=== PATIENT | female | born 2000 | race Caucasian/White ===

== ENCOUNTER 2021-06-23 14:30 | Inpatient (IN) | payer OTHER ==
[~2021-06-23] VITALS: Ht 154.9 cm; Wt 90.8 kg
[2021-06-23] MEDS ORDERED: LEXA1TAB2 PO (14:57)
[2021-06-23] MEDS ORDERED: OLANZapine ORAL DISINTEGRATING TAB 5MG PO ONE (15:15)
[2021-06-23 16:35] LABS: HEMATOCRIT 45.3 % (36.0-47.0); HEMOGLOBIN 15.3 g/dl (12.0-15.5); MEAN CORPUSCULAR HGB CONC 33.8 g/dl (32.0-36.5); MEAN CORPUSCULAR VOLUME 88.8 fl (80.0-96.0); PLATELET COUNT, AUTOMATED 360 10^3/uL (150-450); WHITE BLOOD COUNT 9.9 10^3/uL (4.0-10.0)
[2021-06-23] MEDS ORDERED: NORT1TAB3 PO (16:39)
[2021-06-23] MEDS ORDERED: RA M10TA PO (16:40)
[2021-06-23] MEDS ORDERED: HOME MED LIST COMPLETE! XX SCH (16:40)
[2021-06-23 16:48] LABS: RSV AMPLIFICATION NEGATIVE (NEGATIVE)
[2021-06-23 17:15] LABS: ACETAMINOPHEN LEVEL < 2.0 UG/ML (10.0-30.0); ALBUMIN 3.6 GM/DL (3.2-5.2); ALT/SGPT 57 U/L (12-78); BILIRUBIN,DIRECT < 0.1 MG/DL (0.0-0.2); BILIRUBIN,TOTAL 0.3 MG/DL (0.2-1.0); BLOOD UREA NITROGEN 7 MG/DL (7-18); CALCIUM LEVEL 9.2 MG/DL (8.5-10.1); CARBON DIOXIDE LEVEL 24 MEQ/L (21-32); CHLORIDE LEVEL 111 MEQ/L (98-107); CREATININE FOR GFR 0.58 MG/DL (0.55-1.30); ETHYL ALCOHOL (ETHANOL) < 0.003 % (0.000-0.010); GLUCOSE, FASTING 89 MG/DL (70-100); POTASSIUM SERUM 4.5 MEQ/L (3.5-5.1); SALICYLATE LEVEL < 1.7 MG/DL (5.0-30.0); SODIUM LEVEL 142 MEQ/L (136-145); TOTAL PROTEIN 7.7 GM/DL (6.4-8.2)
[2021-06-23 17:19] LABS: HCG, SERUM QUALITATIVE NEGATIVE (NEGATIVE)
[2021-06-23 17:34] LABS: AMPHETAMINES LEVEL URINE NEGATIVE (NEGATIVE); BARBITURATES URINE NEGATIVE (NEGATIVE); BENZODIAZEPINES URINE NEGATIVE (NEGATIVE); CANNABINOIDS URINE NEGATIVE (NEGATIVE); COCAINE METABOLITE URINE NEGATIVE (NEGATIVE); METHADONE URINE NEGATIVE (NEGATIVE); OPIATES URINE NEGATIVE (NEGATIVE); PHENCYCLIDINE URINE NEGATIVE (NEGATIVE)
[2021-06-23] MEDS ORDERED: ACETAMINOPHEN TAB 650MG DOSE (2X325MG) PO PRN (19:20)
[2021-06-23] MEDS ORDERED: MAALOX 30 ML SUSP *UDC PO PRN (19:20)
[2021-06-23] MEDS ORDERED: MOM 30ML SUSPENSION UDC PO PRN (19:20)
[2021-06-23 23:17] VITALS: BP 142/90
[2021-06-24 07:04] VITALS: BP 128/60
[2021-06-24 18:54] VITALS: BP 171/97
[2021-06-24] MEDS ORDERED: OLANZapine 5 MG TAB PO SCH (21:00)
[2021-06-24] MEDS: PRAZOSIN 1 MG CAP PO SCH (21:49)
[2021-06-24 22:30] VITALS: BP 150/88
[2021-06-25 07:25] VITALS: BP 142/80
[2021-06-25 07:42] LABS: CHOLESTEROL RISK RATIO 3.861 (<5)
[2021-06-25] MEDS: OLANZapine ORAL DISINTEGRATING TAB 5MG PO PRN (13:31)
[2021-06-25] MEDS ORDERED: BENZTROPINE 1 MG TAB PO ONE (16:45)
[2021-06-25] MEDS ORDERED: LORazepam 1 MG TAB PO ONE (16:45)
[2021-06-25 17:19] VITALS: BP 150/94
[2021-06-25] MEDS ORDERED: OLANZapine 5 MG TAB PO SCH (21:00)
[2021-06-25] MEDS: PRAZOSIN 1 MG CAP PO SCH (21:59)
[2021-06-26] MEDS ORDERED: BENZTROPINE 1 MG TAB PO SCH (09:00)
[2021-06-26] MEDS: OLANZapine 5 MG TAB PO SCH ×2 (09:21→20:48)
[2021-06-26] MEDS ORDERED: BENZTROPINE 1 MG TAB PO ONE (11:30)
[2021-06-26] MEDS ORDERED: LORazepam 2 MG TAB PO ONE (11:30)
[2021-06-26] MEDS ORDERED: BENZTROPINE 1 MG TAB PO PRN (11:45)
[2021-06-26] MEDS: PRAZOSIN 1 MG CAP PO SCH (20:51)
[2021-06-26] MEDS: OLANZapine ORAL DISINTEGRATING TAB 5MG PO PRN (23:36)
[2021-06-26] MEDS: traZODone 50 MG TAB PO PRN (23:36)
[2021-06-27 06:52] VITALS: BP 160/78
[2021-06-27] MEDS: OLANZapine 5 MG TAB PO SCH (08:43)
[2021-06-27 14:25] VITALS: BP 172/80
[2021-06-27] MEDS: OLANZapine ORAL DISINTEGRATING TAB 5MG PO PRN ×2 (15:07→20:07)
[2021-06-27] MEDS ORDERED: METOPROLOL TART 25 MG TABLET PO ONE (15:25)
[2021-06-27] MEDS: hydroCHLOROthiazide 12.5 MG CAPSULE PO SCH (16:55)
[2021-06-27] MEDS: amLODIPine 5 MG TAB PO SCH (16:55)
[2021-06-27 17:28] VITALS: BP 146/82
[2021-06-27] MEDS: PRAZOSIN 1 MG CAP PO SCH (21:47)
[2021-06-27] MEDS: traZODone 50 MG TAB PO PRN (21:47)
[2021-06-27] MEDS: OLANZapine 10 MG TAB PO SCH (21:47)
[2021-06-28 06:50] VITALS: BP 125/70
[2021-06-28] MEDS: hydroCHLOROthiazide 12.5 MG CAPSULE PO SCH (09:55)
[2021-06-28] MEDS: OLANZapine 5 MG TAB PO SCH (09:55)
[2021-06-28] MEDS: amLODIPine 5 MG TAB PO SCH (10:11)
[2021-06-28 17:50] VITALS: BP 128/82
[2021-06-28] MEDS: OLANZapine ORAL DISINTEGRATING TAB 5MG PO PRN (21:41)
[2021-06-28] MEDS: OLANZapine 10 MG TAB PO SCH (21:42)
[2021-06-28] MEDS: DIVALPROEX 250 MG TAB PO SCH (21:42)
[2021-06-28 21:51] VITALS: BP 166/90
[2021-06-28] MEDS: PRAZOSIN 1 MG CAP PO SCH (21:51)
[2021-06-28] MEDS: traZODone 50 MG TAB PO PRN (22:25)
[2021-06-29] MEDS: DIVALPROEX 250 MG TAB PO SCH ×2 (08:09→20:02)
[2021-06-29] MEDS: OLANZapine 5 MG TAB PO SCH (08:16)
[2021-06-29] MEDS: amLODIPine 5 MG TAB PO SCH (08:16)
[2021-06-29] MEDS: hydroCHLOROthiazide 12.5 MG CAPSULE PO SCH (08:17)
[2021-06-29 16:08] VITALS: BP 148/69
[2021-06-29] MEDS: OLANZapine 10 MG TAB PO SCH (20:01)
[2021-06-29] MEDS: PRAZOSIN 1 MG CAP PO SCH (20:01)
[2021-06-29] MEDS: traZODone 50 MG TAB PO PRN (20:48)
[2021-06-30 06:16] VITALS: BP 130/72
[2021-06-30] MEDS: DIVALPROEX 250 MG TAB PO SCH ×2 (08:53→21:03)
[2021-06-30] MEDS: hydroCHLOROthiazide 12.5 MG CAPSULE PO SCH (08:53)
[2021-06-30] MEDS: amLODIPine 5 MG TAB PO SCH (08:53)
[2021-06-30] MEDS: OLANZapine 10 MG TAB PO SCH ×2 (08:53→21:02)
[2021-06-30 16:20] VITALS: BP 135/78
[2021-06-30] MEDS: traZODone 50 MG TAB PO PRN (21:02)
[2021-06-30] MEDS: PRAZOSIN 1 MG CAP PO SCH (21:05)
[2021-07-01 06:37] VITALS: BP 144/98
[2021-07-01] MEDS: amLODIPine 5 MG TAB PO SCH (08:17)
[2021-07-01] MEDS: DIVALPROEX 250 MG TAB PO SCH ×2 (08:17→20:49)
[2021-07-01] MEDS: hydroCHLOROthiazide 12.5 MG CAPSULE PO SCH (08:17)
[2021-07-01] MEDS: OLANZapine 10 MG TAB PO SCH ×2 (08:18→20:49)
[2021-07-01 16:17] VITALS: BP 132/75
[2021-07-01] MEDS: traZODone 50 MG TAB PO PRN (20:49)
[2021-07-01] MEDS: PRAZOSIN 1 MG CAP PO SCH (20:49)
[2021-07-02] MEDS: OLANZapine ORAL DISINTEGRATING TAB 5MG PO PRN (00:07)
[2021-07-02 06:30] VITALS: BP 135/82
[2021-07-02] MEDS: hydroCHLOROthiazide 12.5 MG CAPSULE PO SCH (09:58)
[2021-07-02] MEDS: amLODIPine 5 MG TAB PO SCH (09:58)
[2021-07-02] MEDS: OLANZapine 10 MG TAB PO SCH ×2 (09:58→21:25)
[2021-07-02] MEDS: DIVALPROEX 250 MG TAB PO SCH ×2 (09:58→21:23)
[2021-07-02] MEDS: hydrOXYzine 50 MG TAB PO PRN (21:22)
[2021-07-02] MEDS: traZODone 50 MG TAB PO PRN (21:23)
[2021-07-02] MEDS: PRAZOSIN 1 MG CAP PO SCH (21:25)
[2021-07-03] MEDS: OLANZapine ORAL DISINTEGRATING TAB 5MG PO PRN (01:43)
[2021-07-03] MEDS: hydrOXYzine 50 MG TAB PO PRN (05:49)
[2021-07-03 06:42] VITALS: BP 132/70
[2021-07-03] MEDS ORDERED: hydrOXYzine 50 MG TAB PO PRN (08:30)
[2021-07-03] MEDS: hydroCHLOROthiazide 12.5 MG CAPSULE PO SCH (09:09)
[2021-07-03] MEDS: DIVALPROEX 250 MG TAB PO SCH ×2 (09:09→20:42)
[2021-07-03] MEDS: OLANZapine 10 MG TAB PO SCH ×2 (09:09→20:42)
[2021-07-03] MEDS: amLODIPine 5 MG TAB PO SCH (09:11)
[2021-07-03 18:52] VITALS: BP 138/68
[2021-07-03] MEDS: PRAZOSIN 1 MG CAP PO SCH (20:43)
[2021-07-04 06:37] VITALS: BP 115/55
[2021-07-04] MEDS: hydroCHLOROthiazide 12.5 MG CAPSULE PO SCH (09:57)
[2021-07-04] MEDS: amLODIPine 5 MG TAB PO SCH (09:57)
[2021-07-04] MEDS: DIVALPROEX 250 MG TAB PO SCH ×2 (09:57→20:20)
[2021-07-04] MEDS: OLANZapine 5 MG TAB PO SCH (09:58)
[2021-07-04 18:21] VITALS: BP 140/66
[2021-07-04] MEDS: traZODone 50 MG TAB PO PRN (20:20)
[2021-07-04] MEDS: PRAZOSIN 1 MG CAP PO SCH (20:21)
[2021-07-04] MEDS ORDERED: OLANZapine 10 MG TAB PO SCH (21:00)
[2021-07-05 06:09] VITALS: BP 132/62
[2021-07-05] MEDS: OLANZapine 5 MG TAB PO SCH (09:12)
[2021-07-05] MEDS ORDERED: OLAN1TAB20 PO (09:12)
[2021-07-05] MEDS ORDERED: TRAZ-252 PO (09:12)
[2021-07-05] MEDS ORDERED: OLAN1TAB16 PO (09:12)
[2021-07-05] MEDS ORDERED: HYDR12CA PO (09:12)
[2021-07-05] MEDS ORDERED: PRAZ2CAP PO (09:12)
[2021-07-05] MEDS ORDERED: AMLO1TAB24 PO (09:12)
[2021-07-05] MEDS ORDERED: DEPA250T32 PO (09:12)
[2021-07-05] MEDS ORDERED: HYDR50TA70 PO (09:12)
[2021-07-05] MEDS ORDERED: BENZ-52 PO (09:12)
[2021-07-05] MEDS: hydroCHLOROthiazide 12.5 MG CAPSULE PO SCH (09:12)
[2021-07-05] MEDS: DIVALPROEX 250 MG TAB PO SCH (09:13)
[2021-07-05 09:14] VITALS: BP 133/61
[2021-07-05] MEDS ORDERED: HYDR-3363 PO (09:14)
[2021-07-05] MEDS: amLODIPine 5 MG TAB PO SCH (09:14)
== END 2021-07-05 11:50 | disposition home or self-care (01) | DRG 885 ==
LOC: M ED 14:30 → M ED INP 19:16 → M PSY 23:17
PROVIDERS: ADMIT Psychiatry & Neurology Psychiatry; ATTEND Psychiatry & Neurology Psychiatry
DX: F31.9 Bipolar disorder, unspecified (principal); Z79.899 Other long term (current) drug therapy; Z88.0 Allergy status to penicillin; Z91.010 Allergy to peanuts; I10 Essential (primary) hypertension